=== PATIENT | female | born 1945 | race Caucasian/White ===

== ENCOUNTER 2017-05-01 13:51 | Inpatient (IN) | payer MEDICARE, BC ==
[~2017-05-01] VITALS: Ht 165.1 cm; Wt 63.2 kg
[~2017-05-01 13:51] MED LIST: IBUP800T25 PO
[2017-05-01] MEDS ORDERED: SOD CHLORIDE 0.9% 1,000 ML IV STA (14:00)
--- NOTE | 2017-05-01 14:23 | RADRPT ---
PROCEDURE: XR Chest. CLINICAL INDICATION: Dyspnea. Altered level of consciousness. TECHNIQUE: Single frontal chest x-ray. COMPARISON: None. FINDINGS: Right-sided rotational artifact limits evaluation. There is increased opacity in the right hemithor ax possibly due to artifact although early infiltrates are not excluded. . The left lung is clear.. The cardiomediastinal silhouette is unremarkable. The osseous structures are intact. IMPRESSION: Rotational artifact limits evaluation. Questionable right perihilar infiltrates. Recommend follow-up.. RPTAT: GG .Austin Davis MD, MD Date Time Electronically viewed and signed by .Austin Davis MD, MD on 05/01/2017 14:23 .L/
[2017-05-01 14:24] LABS: BASOPHILS % 0.2 % (0.0-2.0); HEMATOCRIT 38.8 % (37.0-47.0); HEMOGLOBIN 12.8 g/dl (12.0-16.0); LYMPHOCYTES # 0.7 10^3/ul (0.8-2.9); LYMPHOCYTES % 6.3 % (15.0-51.0); MEAN CORPUSCULAR HEMOGLOBIN 31.2 pg (29.0-33.0); MEAN CORPUSCULAR VOLUME 94.6 fl (82.0-101.0); MEAN PLATELET VOLUME 9.5 fl (7.4-10.4); MONOCYTE # 0.4 10^3/ul (0.3-0.9); MONOCYTES % 3.3 % (0.0-11.0); NEUTROPHIL # 9.9 10^3/ul (1.6-7.5); NEUTROPHILS % 89.9 % (39.0-77.0); PLATELET COUNT 186 10^3/UL (140-415); RED CELL DISTRIBUTION WIDTH 12.6 % (11.5-14.5)
[2017-05-01] MEDS ORDERED: LEVO137T26 PO (14:33)
[2017-05-01] MEDS ORDERED: TAMS0.4C2 PO (14:33)
[2017-05-01] MEDS ORDERED: IRBE75TA8 PO (14:34)
[2017-05-01] MEDS ORDERED: ALPR0.5T6 PO (14:36)
[2017-05-01 14:39] LABS: AADO2 Arterial 53.5 mmHg (7.0-24.0); Allen Test ACCEPTAB; Arterial Base Excess 0.6 mmol/L (-3.0-3); Arterial COHb 1.4 % (0.0-3.0); Arterial Fraction of Oxyhgb 96.6 % (93.0-99.0); Arterial HCO3 24.8 mmol/L (22.0-26.0); Arterial MetHb 0.2 % (0.0-1.5); Arterial Total Hemglobin 13.3 g/dl (12.0-18.0); MODE NASAL CANNULA
[2017-05-01 14:41] LABS: INR 0.91; PROTIME 12.3 Sec (12.2-14.2)
[2017-05-01 14:44] LABS: ALANINE AMINOTRANSFERASE 39 IU/L (13-69); ALBUMIN 4.4 g/dl (3.3-4.9); ALBUMIN/GLOBULIN RATIO 1.29; ALKALINE PHOSPHATASE 70 IU/L (42-121); ANION GAP 17 (8-16); ASPARTATE AMINO TRANSFERASE 40 IU/L (15-46); BILIRUBIN,INDIRECT 0.6 mg/dl (0-1.1); BILIRUBIN,TOTAL 0.6 mg/dl (0.2-1.3); BLOOD UREA NITROGEN 18 mg/dl (7-20); CALCIUM 9.1 mg/dl (8.4-10.2); CARBON DIOXIDE 30 mmol/L (21-31); CHLORIDE 97 mmol/L (97-110); CREATININE 0.82 mg/dl (0.44-1.00); GLUCOSE 132 mg/dl (70-220); POTASSIUM 4.1 mmol/L (3.5-5.1); SODIUM 140 mmol/L (135-144); TOTAL PROTEIN 7.8 g/dl (6.1-8.1)
[2017-05-01 14:47] LABS: ACETAMINOPHEN < 10.0 ug/ml (10.0-30.0); ETHANOL < 10.0 mg/dl; SALICYLATE < 1.0 mg/dl (5.0-30.0)
[2017-05-01 15:02] LABS: TROPONIN-I < 0.012 ng/ml (0.00-0.12)
[2017-05-01 15:06] LABS: OPIATES Negative (NEGATIVE)
[2017-05-01 15:11] LABS: BARBITURATES Negative (NEGATIVE); BENZODIAZEPINES Positive (NEGATIVE); CANNABINOIDS Negative (NEGATIVE); COCAINE Negative (NEGATIVE)
--- NOTE | 2017-05-01 15:22 | RADRPT ---
PROCEDURE: CT Brain without contrast. CLINICAL INDICATION: Headache. Evaluate for intracranial hemorrhage. TECHNIQUE: A CT of the brain was performed on a multidetector CT scanner utilizing axial sections from the skull base through the vertex without contrast. Images were reviewed on a high-resolution [employer] workstation. Exam CTDI = 44.26 mGy and the DLP = 720.23 mGy-cm. One or more of the following dose reduction techniques were used: Automated exposure control Adjustment of the mA and/or kV according to patient size. Use of iterative reconstruction technique. COMPARISON: None available FINDINGS: Mild diffuse cerebral and cerebellar atrophy is present. There is proportionate dilatation of the v entricular system and sulci in a symmetric fashion. There is prominence of the extraaxial spaces sec ondary to atrophy. There is no evidence of intracranial hemorrhage, mass effect or midline shift. N o abnormal intra-axial or extra-axial fluid collections are seen. The density of the brain is cleo l and the paiz/white matter differentiation is well preserved. Mild patchy diffuse deep white matte r microangiopathic ischemic change is seen. The osseous structures are unremarkable. Scattered m ucosal thickening is seen in the ethmoid air cells, right maxillary and right sphenoid sinuses. IMPRESSION: 1. No intracranial hemorrhage, mass effect or midline shift. 2. Mild generalized atrophy. Mild microangiopathic ischemic change. RPTAT: BB .Jaime Aguilar MD, MD Date Time Electronically viewed and signed by .Jaime Aguilar MD, MD on 05/01/2017 15:21 .O/
[2017-05-01 15:55] LABS: ADD UMIC YES; UR ASCORBIC ACID NEGATIVE (NEGATIVE); UR BACTERIA MANY /HPF (NONE SEEN); UR BILIRUBIN (Dip) NEGATIVE (NEGATIVE); UR BLOOD (Dip) 1+ mg/dL (NEGATIVE); UR CLARITY SLIGHTLY CLOUDY (CLEAR); UR COLOR YELLOW (YELLOW); UR GLUCOSE (Dip) NEGATIVE (NEGATIVE); UR KETONES (Dip) NEGATIVE (NEGATIVE); UR LEUKOCYTE ESTERASE (Dip) 1+ Leu/ul (NEGATIVE); UR MUCUS FEW /HPF (NONE SEEN); UR NITRITE (Dip) NEGATIVE (NEGATIVE); UR RBC 1 /HPF (0-5); UR TOTAL PROTEIN (Dip) 1+ mg/dl (NEGATIVE); UR UROBILINOGEN (Dip) NEGATIVE (NEGATIVE)
[2017-05-01] MEDS ORDERED: CEFTRIAXONE 1 GM/50 ML (PMX) 50 ML IVPB ONE (16:30)
--- NOTE | 2017-05-01 16:33 | ERA ---
ER Documentation Chief Complaint Date/Time DATE: 05/01/17 TIME: 16:24 Chief Complaint INTENTIONAL OVERDOSE OF POSSIBLE OPIOIDS BIB RA 39 HPI 71-year-old woman brought in by EMS for altered mental status and difficulty breathing after overdosing on benzodiazepines and possibly opioids. EMS administered naloxone at the scene with minimal improvement in mental status. Patient has a history of depression and was recently heard speaking about overdosing with her sister. She has no history of medication overdose. She has had no recent fevers or chills, no chest pain or shortness of breath, no seizure activity, no vomiting or diarrhea. Patient was transported here by EMS dyspneic. ROS All systems reviewed and are negative except as per history of present illness. Medications Home Meds Reported Medications Alprazolam* (Alprazolam*) 0.5 Mg Tablet, 0.5 MG PO Q6 Y for ANXIETY, TAB 05/01/17 Irbesartan* (Irbesartan*) 75 Mg Tablet, 75 MG PO BID, TAB 05/01/17 Tamsulosin Hcl* (Tamsulosin Hcl*) 0.4 Mg Cap.er.24h, 0.4 MG PO BID, CAP 05/01/17 Levothyroxine Sodium* (Levoxyl*) 137 Mcg Tablet, 137 MCG PO BEFORE BREAKFAST, # 30 TAB 05/01/17 Discontinued Scripts Ibuprofen* (Motrin*) 800 Mg Tab, 800 MG PO Q6H Y for PAIN AND OR ELEVATED TEMP, #30 TAB Prov:CHAMP BHATT NP 05/16/15 Allergies Allergies: Coded Allergies: Sulfa (Sulfonamide Antibiotics) (Unverified Allergy, Unknown, 05/01/17) PMhx/Soc Hypertension, hypothyroidism, depression Medical and Surgical Hx: Unable to obtain History of Surgery: No Anesthesia Reaction: No Hx Neurological Disorder: No Hx Respiratory Disorders: No Hx Cardiac Disorders: No Hx Psychiatric Problems: No Hx Miscellaneous Medical Probl: No Hx Substance Use: Yes (OD ON POSSIBLE OPIOIDS) Smoking Status: Unknown if ever smoked FmHx Family History: No diabetes Physical Exam Vitals Vital Signs Date Time Temp Pulse Resp B/P Pulse Ox O2 Delivery O2 Flow Rate FiO2 05/01/17 14:23 98.2 84 16 127/53 100 Nasal Cannula 2.0 05/01/17 14:23 Nasal Cannula 2 05/01/17 14:07 98.2 82 16 163/151 100 Physical Exam GENERAL: Elderly debilitated woman, minimally responsive, dyspneic, afebrile HEENT: Dry mucous membranes, pink conjunctiva, no cervical spine tenderness or step-off deformities, no goiter, no jaundice or icterus, extraocular movements intact without pain. No submandibular induration, and no pharyngeal erythema NEURO: Eyes closed, responsive to verbal stimuli, arousable, no facial asymmetry or focal deficits, pupils constricted but reactive CARDIAC: Bradycardic and regular, no murmurs rubs or gallops LUNGS: Poor breath sounds bilaterally, no wheezing or stridor ABDOMEN: Soft nontender, no guarding, no rigidity, no rebound, no psoas sign no obturator sign. Normoactive bowel sounds SKIN: Warm and dry to touch, no abrasions, contusions, or hematomas, no lacerations, no ecchymosis, no target lesions, and without ulcers EXTREMITIES: No clubbing cyanosis or edema, calves are bilaterally symmetrical, no Homans sign, no popliteal cord sign. Distal pulses equal and bilateral PSYCH: Normal affect without agitation or irritability Result Diagram: 05/01/17 1410 05/01/17 1410 Results 24 hrs Laboratory Tests Test 05/01/17 14:00 05/01/17 14:10 05/01/17 14:20 Blood Gas Specimen Source Blood arterial Arterial Blood Date Drawn 05/01/2017 2:30:50 PM Arterial Blood pH (Temp corrected) 7.427 Arterial Blood pCO2 (Temp correct) 38.5mmhg Arterial Blood pO2 (Temp corrected) 115.2mmHG Arterial Blood HCO3 24.8mmol/L Arterial Blood Base Excess 0.6mmol/L Arterial Blood Oxygen Saturation 98.2mmHG Yayo Test ACCEPTAB Arterial Blood Gas Puncture Site Left Radial Arterial Blood Carboxyhemoglobin 1.4% Arterial Blood Methemoglobin 0.2% Blood Gas A-a O2 Differential 53.5mmHg Oxyhemoglobin Percent 96.6% Total Hemoglobin 13.3g/dl Blood Gas Temperature 37.0C Blood Gas Modality NASAL CANNULA FiO2 30.0% Blood Gas Notified Whom JLD Blood Gas Notified Time 05/01/2017 2:39:30 PM White Blood Count 11.010^3/ul Red Blood Count 4.1010^6/ul Hemoglobin 12.8g/dl Hematocrit 38.8% Mean Corpuscular Volume 94.6fl Mean Corpuscular Hemoglobin 31.2pg Mean Corpuscular Hemoglobin Concent 33.0g/dl Red Cell Distribution Width 12.6% Platelet Count 01943^3/UL Mean Platelet Volume 9.5fl Neutrophils % 89.9% Lymphocytes % 6.3% Monocytes % 3.3% Eosinophils % 0.0% Basophils % 0.2% Nucleated Red Blood Cells % 0.0/100WBC Neutrophils # 9.910^3/ul Lymphocytes # 0.710^3/ul Monocytes # 0.410^3/ul Eosinophils # 0.010^3/ul Basophils # 0.010^3/ul Nucleated Red Blood Cells # 0.010^3/ul Prothrombin Time 12.3Sec Prothrombin Time Ratio 1.0 INR International Normalized Ratio 0.91 Sodium Level 140mmol/L Potassium Level 4.1mmol/L Chloride Level 97mmol/L Carbon Dioxide Level 30mmol/L Anion Gap 17 Blood Urea Nitrogen 18mg/dl Creatinine 0.82mg/dl Glucose Level 132mg/dl Calcium Level 9.1mg/dl Total Bilirubin 0.6mg/dl Direct Bilirubin 0.00mg/dl Indirect Bilirubin 0.6mg/dl Aspartate Amino Transf (AST/SGOT) 40IU/L Alanine Aminotransferase (ALT/SGPT) 39IU/L Alkaline Phosphatase 70IU/L Troponin I < 0.012ng/ml Total Protein 7.8g/dl Albumin 4.4g/dl Globulin 3.40g/dl Albumin/Globulin Ratio 1.29 Lipase 27U/L Salicylates Level < 1.0mg/dl Acetaminophen Level < 10.0ug/ml Ethyl Alcohol Level < 10.0mg/dl Urine Color YELLOW Urine Clarity SLIGHTLY CLOUDY Urine pH 6.0 Urine Specific [place] 1.020 Urine Ketones NEGATIVEmg/dL Urine Nitrite NEGATIVEmg/dL Urine Bilirubin NEGATIVEmg/dL Urine Urobilinogen NEGATIVEmg/dL Urine Leukocyte Esterase 1+Rob/ul Urine Microscopic RBC 1/HPF Urine Microscopic WBC 48/HPF Urine Bacteria MANY/HPF Urine Mucus FEW/HPF Urine Hemoglobin 1+mg/dL Urine Glucose NEGATIVEmg/dL Urine Total Protein 1+mg/dl Urine Opiates Screen Negative Urine Barbiturates Negative Urine Amphetamines Screen Negative Urine Benzodiazepines Screen Positive Urine Cocaine Screen Negative Urine Cannabinoids Negative Current Medications Medications (Trade) Dose Ordered Sig/Everardo Route PRN Reason Start Time Stop Time Status Last Admin Dose Admin Sodium Chloride (NS) 1,000 ml @ 1,000 mls/hr Q1H STAT IV 05/01/17 14:00 05/01/17 14:59 DC 05/01/17 14:34 Procedures/MDM IV line was established patient was placed on court monitor rhythm strip revealed a sinus bradycardia 50 bpm. Patient was afebrile. Rodríguez catheter was placed. Patient was placed on high flow facemask oxygen, oxygen saturation normal. Intubation was considered, ABG on low-flow oxygen revealed a pH of 7.43, PCO2 39 , PO2 115. I administered 1 L normal saline intravenously. CBC was normal, electrolytes revealed dehydration with a BUN creatinine of 18/ 0.8, liver function tests normal, troponin negative, urine analysis positive for infection. I treated the patient here with ceftriaxone 1 g IV. Aspirin Tylenol levels negative, alcohol level negative, urine drug screen positive only for benzodiazepines consistent with history. One view chest x-ray performed, read by me revealed atelectatic changes bilaterally, no acute infiltrates, no pneumothorax. CT scan of the brain was performed that was negative for acute bleed mass or shift. EKG performed, read by me revealed a normal sinus rhythm at 71 bpm, normal axis , narrow QRS complex, no concerning ST elevations or depressions noted. End-tidal carbon dioxide monitoring performed about 2 hours after arrival, CO2 35 with oxygen saturation of 100%. No indication for intubation at this time. Patient suffered a suicidal attempt although is not medically cleared and will be admitted to telemetry setting for continued medical management. Critical Care: Time: 38 minutes, this was time separate from other billable procedures. Treatments/Evaluations: Close monitoring and treatment of unstable vital signs, cardiorespiratory, and neurologic status, while maintaining tight balance of fluid, respiratory, and cardiac interventions. Patient will be admitted to telemetry setting for continued medical management and IV antibiotics. Departure Diagnosis: Primary Impression: Acute respiratory failure Qualified Code: J96.01 - Acute respiratory failure with hypoxia and hypercapnia Additional Impressions: Acute encephalopathy Acute urinary tract infection Poisoning by benzodiazepine, intentional self-harm Qualified Code: T42.4X2A - Poisoning by benzodiazepine, intentional self-harm , initial encounter Dehydration Depression Qualified Code: F32.2 - Severe single current episode of major depressive disorder, without psychotic features Condition: Serious TRINIDAD MITCHELL MD May 01, 2017 16:32
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
[2017-05-01] MEDS ORDERED: NACL 0.9% 3 ML SYG IV SCH (17:00)
[2017-05-01] MEDS ORDERED: SOD CHLORIDE 0.9% 1,000 ML IV ONE (17:30)
[2017-05-01 20:09] VITALS: TEMP 98.3
[2017-05-01 20:49] VITALS: PULSE 93
[2017-05-01 21:40] VITALS: Ht 165.1 cm; Wt 63.2 kg
[2017-05-02] VITALS (12 sets, daily range): BP systolic 109–133; BP diastolic 54–62; PULSE 79–103; RESP 19–20
[2017-05-02] MEDS: LEVOTHYROXINE 137 MCG TAB PO SCH (07:00)
[2017-05-02] MEDS ORDERED: ACETAMINOPHEN 1000MG/100ML IV 100 ML IVPB PRN (07:00)
[2017-05-02] MEDS ORDERED: SOD CHLORIDE 0.9% 1,000 ML IV SCH (07:00)
[2017-05-02] MEDS: TAMSULOSIN (SR) 0.4 MG CAP PO SCH ×2 (08:05→21:00)
[2017-05-02] MEDS: ENOXAPARIN 40 MG/0.4 ML SYG SC SCH (08:06)
[2017-05-02 08:13] LABS: BASOPHILS % 0.1 % (0.0-2.0); EOSINOPHILS % 0.1 % (0.0-7.0); HEMATOCRIT 37.3 % (37.0-47.0); HEMOGLOBIN 12.4 g/dl (12.0-16.0); LYMPHOCYTES # 1.5 10^3/ul (0.8-2.9); MEAN CORPUSCULAR HEMOGLOBIN 31.6 pg (29.0-33.0); MEAN CORPUSCULAR HGB CONC 33.2 g/dl (32.0-37.0); MEAN CORPUSCULAR VOLUME 95.2 fl (82.0-101.0); MEAN PLATELET VOLUME 11.1 fl (7.4-10.4); MONOCYTE # 0.8 10^3/ul (0.3-0.9); MONOCYTES % 6.1 % (0.0-11.0); NEUTROPHIL # 10.1 10^3/ul (1.6-7.5); NEUTROPHILS % 81.2 % (39.0-77.0); PLATELET COUNT 153 10^3/UL (140-415); RED BLOOD COUNT 3.92 10^6/ul (4.20-5.40); WHITE BLOOD COUNT 12.4 10^3/ul (4.8-10.8)
[2017-05-02 08:34] LABS: ADD UMIC YES; UR ASCORBIC ACID NEGATIVE (NEGATIVE); UR BACTERIA FEW /HPF (NONE SEEN); UR BILIRUBIN (Dip) NEGATIVE (NEGATIVE); UR BLOOD (Dip) 2+ mg/dL (NEGATIVE); UR CLARITY SLIGHTLY CLOUDY (CLEAR); UR COLOR YELLOW (YELLOW); UR GLUCOSE (Dip) NEGATIVE (NEGATIVE); UR KETONES (Dip) TRACE mg/dL (NEGATIVE); UR LEUKOCYTE ESTERASE (Dip) 3+ Leu/ul (NEGATIVE); UR MUCUS FEW /HPF (NONE SEEN); UR NITRITE (Dip) NEGATIVE (NEGATIVE); UR RBC 41 /HPF (0-5); UR SPECIFIC GRAVITY (Dip) 1.014 (1.003-1.030); UR TOTAL PROTEIN (Dip) 1+ mg/dl (NEGATIVE); UR UROBILINOGEN (Dip) NEGATIVE (NEGATIVE)
[2017-05-02 08:50] LABS: CALCIUM 8.7 mg/dl (8.4-10.2); CREATININE 0.77 mg/dl (0.44-1.00)
[2017-05-02] MEDS ORDERED: IRBESARTAN 75 MG PO SCH (09:00)
[2017-05-02] MEDS: LOSARTAN 25 MG TAB PO SCH ×2 (11:00→21:00)
[2017-05-02] MEDS: HALOPERIDOL 5 MG INJ IV PRN ×3 (11:45→22:59)
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
[2017-05-02] MEDS ORDERED: LEVOFLOXACIN 750 MG TABLET PO ONE (14:00)
[2017-05-02] MEDS: LEVOFLOXACIN 750 MG TABLET PO SCH (15:00)
--- NOTE | 2017-05-02 16:37 | RADRPT ---
PROCEDURE: XR Chest. CLINICAL INDICATION: Cough and fever. TECHNIQUE: Single frontal view. COMPARISON: 05/01/2017. FINDINGS: There is linear atelectasis or mild pneumonia in the right mid and lower lung zones. The lungs are otherwise clear. The heart is mildly enlarged. There is calcification in the aorta consistent with atherosclerosis. There is no pleural effusion. There is no pneumothorax. IMPRESSION: 1. Atelectasis or pneumonia in the right mid and lower lung zones. Follow-up advised. 2. Cardiomegaly and atherosclerosis. RPTAT: QQ .Louie Barnard MD, MD Date Time Electronically viewed and signed by .Louie Barnard MD, MD on 05/02/2017 16:37 .R/
[2017-05-03] VITALS (11 sets, daily range): BP systolic 98–136; BP diastolic 49–60; PULSE 75–103; RESP 18–20
[2017-05-03] MEDS: HALOPERIDOL 5 MG INJ IV PRN ×2 (05:30→05:39)
[2017-05-03] MEDS: LEVOFLOXACIN 750 MG TABLET PO SCH (06:00)
[2017-05-03] MEDS: LEVOTHYROXINE 137 MCG TAB PO SCH (06:31)
[2017-05-03 07:53] LABS: BASOPHILS % 0.1 % (0.0-2.0); HEMATOCRIT 37.2 % (37.0-47.0); HEMOGLOBIN 12.3 g/dl (12.0-16.0); LYMPHOCYTES % 6.9 % (15.0-51.0); MEAN CORPUSCULAR HEMOGLOBIN 31.2 pg (29.0-33.0); MEAN CORPUSCULAR HGB CONC 33.1 g/dl (32.0-37.0); MEAN CORPUSCULAR VOLUME 94.4 fl (82.0-101.0); MEAN PLATELET VOLUME 10.3 fl (7.4-10.4); MONOCYTE # 0.9 10^3/ul (0.3-0.9); MONOCYTES % 5.8 % (0.0-11.0); NEUTROPHIL # 13.1 10^3/ul (1.6-7.5); NEUTROPHILS % 86.9 % (39.0-77.0); PLATELET COUNT 192 10^3/UL (140-415); RED BLOOD COUNT 3.94 10^6/ul (4.20-5.40); RED CELL DISTRIBUTION WIDTH 12.7 % (11.5-14.5); WHITE BLOOD COUNT 15.1 10^3/ul (4.8-10.8)
[2017-05-03] MEDS: TAMSULOSIN (SR) 0.4 MG CAP PO SCH ×2 (09:03→20:52)
[2017-05-03] MEDS: LOSARTAN 25 MG TAB PO SCH ×2 (09:04→20:53)
[2017-05-03] MEDS: ENOXAPARIN 40 MG/0.4 ML SYG SC SCH (09:05)
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
[2017-05-04] VITALS (11 sets, daily range): BP systolic 103–135; BP diastolic 49–63; PULSE 78–94; RESP 18–21
[2017-05-04] MEDS: LEVOTHYROXINE 137 MCG TAB PO SCH (06:27)
[2017-05-04] MEDS: TAMSULOSIN (SR) 0.4 MG CAP PO SCH ×2 (08:44→21:51)
[2017-05-04] MEDS: LOSARTAN 25 MG TAB PO SCH ×2 (08:44→22:10)
[2017-05-04 08:45] LABS: BASOPHILS % 0.2 % (0.0-2.0); EOSINOPHILS % 0.3 % (0.0-7.0); HEMATOCRIT 35.8 % (37.0-47.0); HEMOGLOBIN 11.5 g/dl (12.0-16.0); LYMPHOCYTES # 1.4 10^3/ul (0.8-2.9); LYMPHOCYTES % 14.6 % (15.0-51.0); MEAN CORPUSCULAR HEMOGLOBIN 30.3 pg (29.0-33.0); MEAN CORPUSCULAR HGB CONC 32.1 g/dl (32.0-37.0); MEAN CORPUSCULAR VOLUME 94.2 fl (82.0-101.0); MEAN PLATELET VOLUME 9.8 fl (7.4-10.4); MONOCYTE # 0.7 10^3/ul (0.3-0.9); MONOCYTES % 6.8 % (0.0-11.0); NEUTROPHIL # 7.4 10^3/ul (1.6-7.5); NEUTROPHILS % 77.8 % (39.0-77.0); PLATELET COUNT 178 10^3/UL (140-415); RED CELL DISTRIBUTION WIDTH 12.8 % (11.5-14.5); WHITE BLOOD COUNT 9.5 10^3/ul (4.8-10.8)
[2017-05-04] MEDS: ENOXAPARIN 40 MG/0.4 ML SYG SC SCH (08:51)
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
--- NOTE | 2017-05-04 18:55 | RADRPT ---
PROCEDURE: XR 1 view Chest. CLINICAL INDICATION: Pneumonia. TECHNIQUE: Portable Single frontal view of the chest was obtained. COMPARISON: May 02, 2017. FINDINGS: The heart is normal in size. There are mild aortic calcifications. There is no focal consolidation. There is resolved right lower lobe atelectasis. There is no pleural effusion. No pneumothorax is identified. The osseous structures are intact. IMPRESSION: Resolved right lower lobe atelectasis. No evidence for acute cardiopulmonary disease. The calcifications. Further findings as detailed above. RPTAT: HVF .Mike Goode MD, Date Time Electronically viewed and signed by .Mike Goode MD, on 05/04/2017 18:55 .F/
[2017-05-05 02:28] VITALS: BP 118/59; RESP 19
[2017-05-05] MEDS: LEVOTHYROXINE 137 MCG TAB PO SCH ×2 (07:00→11:01)
[2017-05-05 07:27] VITALS: BP 131/62; RESP 18
[2017-05-05] MEDS: LOSARTAN 25 MG TAB PO SCH ×2 (09:00→21:06)
[2017-05-05] MEDS: ENOXAPARIN 40 MG/0.4 ML SYG SC SCH (09:00)
[2017-05-05] MEDS: TAMSULOSIN (SR) 0.4 MG CAP PO SCH ×2 (10:12→21:06)
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
[2017-05-05 14:41] VITALS: BP 120/58; RESP 18
[2017-05-05] MEDS ORDERED: ALPRAZOLAM 0.5 MG TAB PO PRN (16:00)
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
[2017-05-05 20:05] VITALS: BP 132/63; RESP 20
[2017-05-06 02:25] VITALS: BP 146/68; RESP 18
[2017-05-06] MEDS: LEVOTHYROXINE 137 MCG TAB PO SCH (05:32)
[2017-05-06 07:55] VITALS: BP 132/61; RESP 20
[2017-05-06] MEDS: LOSARTAN 25 MG TAB PO SCH (09:00)
[2017-05-06] MEDS: TAMSULOSIN (SR) 0.4 MG CAP PO SCH (10:30)
[2017-05-06] MEDS: ENOXAPARIN 40 MG/0.4 ML SYG SC SCH (10:32)
[2017-05-06 14:21] VITALS: BP 128/72; RESP 20
[2017-05-06] MEDS ORDERED: IRBESARTAN 75 MG PO SCH (14:30)
--- NOTE | 2017-05-06 18:11 | PN ---
Date/Time of Note Date/Time of Note DATE: 05/06/17 TIME: 18:10 Assessment/Plan VTE Prophylaxis VTE Prophylaxis Intervention: SCD's Lines/Catheters IV [facility] Type [facility] Saline Lock Assessment/Plan Chief Complaint/Hosp Course Patient is a 71-year-old female with no known psychiatric history who was admitted for intentional Xanax overdose as part of a suicide pact with her sister. Patient was seen by tele-psych and medically cleared pending transfer to inpatient psych facility Problem list and assessment Depression Suicidal ideation Hypothyroidism Pretension Anxiety encephalopathy, 2/2 xanax OD leukocytosis, resolved. Plan -Pending DC to inpatient psych -Medically clear -Continue home meds as able Problems: Subjective 24 Hr Interval Summary Free Text/Dictation no acute complaints except wanting to take her home irbasartan instead of losartan. Exam/Review of Systems Vital Signs Vitals Vital Signs Date Time Temp Pulse Resp B/P Pulse Ox O2 Delivery O2 Flow Rate FiO2 05/06/17 14:21 98.2 88 20 128/72 98 05/04/17 18:18 Room Air Intake and Output 05/05/17 05/05/17 05/06/17 14:59 22:59 06:59 Intake Total 824 ml 120 ml Balance 824 ml 120 ml Exam Physical exam General: Patient is laying in bed and answers questions appropriately Mentation: Patient is alert and oriented 4, Head: Normocephalic atraumatic Eyes: EOMI, pupils reactive to light Neck: Supple, nontender, midline Respiratory: Clear to auscultation bilaterally Cardiovascular: regular rate, no obvious murmurs Gastrointestinal: non-tender to palpation, bowel sounds heard. Neurological: Moves all extremities spontaneously Skin: No new skin lesions Results Result Diagram: 05/04/17 0825 05/02/17 0737 Medications Medications Current Medications Enoxaparin Sodium (Lovenox) 40 mg DAILY SC Last administered on 05/06/17 10:32 ; Admin Dose 40 MG; Start 05/02/17 at 09:00 Tamsulosin HCl (Flomax) 0.4 mg BID PO Last administered on 05/06/17 10:30; Admin Dose 0.4 MG; Start 05/02/17 at 09:00 Haloperidol (Haldol) 0.5 mg Q4H PRN IV for agitation Last administered on 05:39; Admin Dose 0.5 MG; Start 05/02/17 at 11:00 Miscellaneous Information Patients own medicat... BID@ XX ; Start 05/05/17 at 16:00 Alprazolam (Xanax) 0.5 mg Q6H PRN PO ANXIETY; Start 05/05/17 at 16:00 Patient Own Medication 1 ea BID PO Last administered on 05/06/17 14:48; Admin Dose 1 EA; Start 05/06/17 at 14:30 TRINIDAD VICK May 06, 2017 18:11
== END 2017-05-06 19:37 | DRG 917 ==
LOC: E/R 13:51 → MS4 16:08 → PP2 05-04 17:41
PROVIDERS: ADMIT Internal Medicine; ATTEND Internal Medicine
PROC: 4A033R1 Measurement of Arterial Saturation, Peripheral, Percutaneous Approach (ICD-10-PCS; principal; 2017-05-01)
DX: T42.4X2A Poisoning by benzodiazepines, intentional self-harm, initial encounter (principal); G92 Toxic encephalopathy; J96.00 Acute respiratory failure, unspecified whether with hypoxia or hypercapnia; C91.50 Adult T-cell lymphoma/leukemia (HTLV-1-associated) not having achieved remission; S92.911A Unspecified fracture of right toe(s), initial encounter for closed fracture; D72.829 Elevated white blood cell count, unspecified; N39.0 Urinary tract infection, site not specified; Z88.2 Allergy status to sulfonamides; E03.9 Hypothyroidism, unspecified; I10 Essential (primary) hypertension; E86.0 Dehydration; F43.23 Adjustment disorder with mixed anxiety and depressed mood; X58.XXXA Exposure to other specified factors, initial encounter; Y92.003 Bedroom of unspecified non-institutional (private) residence as the place of occurrence of the external cause
CPT/HCPCS: 36415; 36600; 70450; 71010; 80048; 80053; 80306; 80307; 81001; 82803; 83690; 84439; 84443; 84484; 85025; 85610; 87040; 87086; 93005; 96361; 96365; 97162; J0696; J1630; J1650; J7030

== ENCOUNTER 2019-01-15 16:51 | Emergency (ER) | payer MEDICARE, BC ==
[~2019-01-15] VITALS: Wt 61.6 kg
[~2019-01-15 16:51] MED LIST changes: +ALPR0.5T6 PO; -IBUP800T25 PO; +IRBE75TA8 PO; +LEVO137T26 PO; +TAMS0.4C2 PO
[2019-01-15] MEDS ORDERED: KETOROLAC 30 MG INJ IM STA (18:15)
[2019-01-15] MEDS ORDERED: DEXAMETHASONE 10 MG/ML 1 ML INJ IM ONE (18:30)
[2019-01-15] MEDS ORDERED: CYCL10TA7 PO (18:55)
[2019-01-15 19:15] VITALS: BP 134/68; PULSE 78; RESP 18
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
== END 2019-01-15 19:15 | disposition home or self-care (01) ==
LOC: FTE 16:51
DX: M54.41 Lumbago with sciatica, right side (principal); E03.9 Hypothyroidism, unspecified; I10 Essential (primary) hypertension; Z85.79 Personal history of other malignant neoplasms of lymphoid, hematopoietic and related tissues; Z87.891 Personal history of nicotine dependence
CPT/HCPCS: 96372; 99284; J1100; J1885